=== PATIENT | male | born 1975 | race Caucasian/White ===

== ENCOUNTER 2018-05-30 12:27 | Emergency (ER) | payer BC ==
[2018-05-30] MEDS ORDERED: Sodium Chloride 0.9% 2.5 ML Syringe FLUSH PRN (12:40)
[2018-05-30] MEDS ORDERED: Aspirin 81 MG Tab.Chew PO ONE (12:40)
[2018-05-30] MEDS ORDERED: Sodium Chloride 0.9% 10 ML Syringe FLUSH PRN (12:40)
[2018-05-30] MEDS ORDERED: Sodium Chloride 0.9% 500 ML IV SCH (12:45)
[2018-05-30] MEDS: Nitroglycerin 0.4 MG Tab.SL SL PRN ×2 (12:45→12:55)
--- NOTE | 2018-05-30 12:46 | EDM.PDOC ---
ED HPI GENERAL MEDICAL PROBLEM - General Chief Complaint: Chest Pain Stated Complaint: CHEST PAIN Time Seen by Provider: 05/30/18 12:30 - History of Present Illness INITIAL COMMENTS - FREE TEXT/NARRATIVE: HISTORY AND PHYSICAL: History of present illness: The patient is a 42-year-old male who says he has a history of hypertension but has been off medication since 2016 as his blood pressure normalized, and says he 's been under a great deal of stress with his job and has been not sleeping very much only 2-3 hours a night and he is here for left-sided chest pain. The patient says he had a similar episode in May 2016 and was admitted here as an observation and everything was negative and he had a stress test but no heart catheter. He was not told that there was anything abnormal. The patient says that he does smoke tobacco 2-3 packs a day and drinks alcohol weekly but denies drug use. Is no significant family history. He says that of late he has been under a great deal of stress with his job because he has not been sleeping very much and on , 5 nights ago, he woke with vague chest pain and some sweating. He didn't think anything of it as he thought it was just related to his stress. He says he has had chest pain this morning at 2:30 AM which lasted about 45 minutes and it was left-sided pressure-like and it made him feel lightheaded. He had no shortness of breath abdominal pain or vomiting and he did not pass out. Again he was driving his car and awake when this occurred and did not come in for care. Since 7 AM he has had on again off again chest pressure on the left side without radiation and no associated symptoms and he currently rates it as a 4-5/10. Is not taking any medication for this. He says that he feels like his blood pressure is likely elevated as well area has no leg pain or swelling and no calf pain. He's been eating and drinking normally and doesn't drink an excessive amount of caffeine. The patient says that he has not had his lipid panel or cholesterol profile checked in the last 2 years Review of systems: As per history of present illness and below otherwise all systems reviewed and negative. Past medical history: As per history of present illness and as reviewed below otherwise noncontributory. Surgical history: As per history of present illness and as reviewed below otherwise noncontributory. Social history: No reported history of drug or alcohol abuse. Family history: As per history of present illness and as reviewed below otherwise noncontributory. Physical exam: General: Well-developed well-nourished man who is nontoxic and vital signs were noted by me. He is mildly overweight. HEENT: Atraumatic, normocephalic, pupils reactive, negative for conjunctival pallor or scleral icterus, mucous membranes moist, throat clear, neck supple, nontender, trachea midline. Lungs: Clear to auscultation, breath sounds equal bilaterally, chest nontender. Heart: S1S2, regular rate and rhythm no overt murmurs Abdomen: Soft, nondistended, nontender. Negative for masses or hepatosplenomegaly. Negative for costovertebral tenderness. Pelvis: Stable nontender. Genitourinary: Deferred. Rectal: Deferred. Extremities: Atraumatic, negative for cords or calf pain. Neurovascular unremarkable. No pedal edema or leg asymmetry Neuro: Awake, alert, oriented. Cranial nerves II through XII unremarkable. Cerebellum unremarkable. Motor and sensory unremarkable throughout. Exam nonfocal. Skin: Normal turgor no evidence of a overt rashes or lesions and no diaphoresis Diagnostics: EKG chest x-ray CBC CMP INR troponin Therapeutics: IV O2 monitor aspirin nitroglycerin sublingual After 2 sublingual nitros the patient is chest pain-free. 1 inch of nitro paste will be placed and I will continue to monitor his workup and plan for observation admission. 1322: Case was discussed with Dr. Zendejas our hospitalist and he accepts the patient for observation admission pending the remaining testing results which I will follow-up patient is aware of all testing results and care plan for admission as well. Impression: Episodic chest pain Definitive disposition and diagnosis as appropriate pending reevaluation and review of above. Left Chest Pain Score (Numeric/FACES): 5 - Related Data Allergies Allergy/AdvReac Type Severity Reaction Status Date / Time No Known Allergies Allergy Verified 05/30/18 12:44 Home Meds: Home Meds . [No Known Home Meds] 05/30/18 [History] Past Medical History HEENT History: Reports: None Cardiovascular History: Reports: Hypertension Respiratory History: Reports: None Gastrointestinal History: Reports: None Genitourinary History: Reports: Renal Calculus Other Genitourinary History: bladder ca Other Musculoskeletal History: hip fracture Neurological History: Reports: None Psychiatric History: Reports: None Endocrine/Metabolic History: Reports: None Hematologic History: Reports: None Immunologic History: Reports: None Oncologic (Cancer) History: Reports: Bladder Dermatologic History: Reports: None - Infectious Disease History Infectious Disease History: Reports: Chicken Pox - Past Surgical History GI Surgical History: Reports: Other (See Below) Male Surgical History: Reports: Other (See Below) Musculoskeletal Surgical History: Reports: Other (See Below) Social & Family History - Family History Family Medical History: Noncontributory Cardiac: Reports: CAD Neurological: Reports: CVA - Caffeine Use Caffeine Use: Reports: Soda, Tea ED ROS GENERAL - Review of Systems Review Of Systems: ROS reveals no pertinent complaints other than HPI. ED EXAM, GENERAL - Physical Exam Exam: See Below (See dictation) Course - Vital Signs Last Recorded V/S: Last Vital Signs Temp 36.5 C 05/30/18 12:30 Pulse 86 05/30/18 12:30 Resp 18 05/30/18 12:30 BP 150/99 H 05/30/18 12:55 Pulse Ox 97 05/30/18 12:30 - Orders/Labs/Meds Orders: Active Orders 24 hr Category Date Time Status Patient Status [ADT] Stat ADT 05/30/18 13:45 Ordered Cardiac Monitoring [RC] . DIRECTED Care 05/30/18 12:39 Active EKG Documentation Completion [RC] STAT Care 05/30/18 12:39 Active Oxygen Therapy, ED [RC] ASDIRECTED Care 05/30/18 12:39 Active Pulse Oximetry [RC] ASDIRECTED Care 05/30/18 12:39 Active Nitroglycerin [Nitrostat] Med 05/30/18 12:40 Active 0.4 mg SL Q5M PRN Sodium Chloride 0.9% [Normal Saline] 500 ml Med 05/30/18 12:45 Active IV STAT Sodium Chloride 0.9% [Saline Flush] Med 05/30/18 12:40 Active 10 ml FLUSH ASDIRECTED PRN Sodium Chloride 0.9% [Saline Flush] Med 05/30/18 12:40 Active 2.5 ml FLUSH ASDIRECTED PRN Saline Lock Insert [OM.PC] Stat Oth 05/30/18 12:39 Ordered Medication Orders Sodium Chloride (Normal Saline) 500 mls @ 999 mls/hr IV STAT SLY Last Admin: 05/30/18 12:46 Dose: 999 mls/hr Nitroglycerin (Nitrostat) 0.4 mg SL Q5M PRN PRN Reason: Chest Pain Last Admin: 05/30/18 12:55 Dose: 0.4 mg Admin: 05/30/18 12:45 Dose: 0.4 mg Sodium Chloride (Saline Flush) 10 ml FLUSH ASDIRECTED PRN PRN Reason: Keep Vein Open Last Admin: 05/30/18 12:46 Dose: 10 ml Sodium Chloride (Saline Flush) 2.5 ml FLUSH ASDIRECTED PRN PRN Reason: Keep Vein Open Last Admin: 05/30/18 12:46 Dose: 2.5 ml Labs: Laboratory Tests 05/30/18 05/30/18 05/30/18 Range/Units 12:35 12:35 12:35 WBC 7.11 (4.0-11.0) K/uL RBC 5.26 (4.50-5.90) M/uL Hgb 16.0 (13.0-17.0) g/dL Hct 46.6 (38.0-50.0) % MCV 88.6 (80.0-98.0) fL MCH 30.4 (27.0-32.0) pg MCHC 34.3 (31.0-37.0) g/dL RDW Std Deviation 46.0 (28.0-62.0) fl RDW Coeff of Linda 14 (11.0-15.0) % Plt Count 241 (150-400) K/uL MPV 9.80 (7.40-12.00) fL Neut % (Auto) 55.8 (48.0-80.0) % Lymph % (Auto) 34.6 (16.0-40.0) % [place] % (Auto) 7.5 (0.0-15.0) % Eos % (Auto) 1.3 (0.0-7.0) % Baso % (Auto) 0.8 (0.0-1.5) % Neut # (Auto) 4.0 (1.4-5.7) K/uL Lymph # (Auto) 2.5 H (0.6-2.4) K/uL [place] # (Auto) 0.5 (0.0-0.8) K/uL Eos # (Auto) 0.1 (0.0-0.7) K/uL Baso # (Auto) 0.1 (0.0-0.1) K/uL Nucleated RBC % 0.0 /100WBC Nucleated RBCs # 0 K/uL INR 0.94 Sodium 142 (136-148) mmol/L Potassium 4.3 (3.5-5.1) mmol/L Chloride 108 H (98-107) mmol/L Carbon Dioxide 26.4 (21.0-32.0) mmol/L BUN 18 (7.0-18.0) mg/dL Creatinine 1.3 (0.8-1.3) mg/dL Est Cr Clr Drug Dosing 84.61 mL/min Estimated GFR (MDRD) > 60.0 ml/min Glucose 118 H (74-106) mg/dL Calcium 9.5 (8.5-10.1) mg/dL Total Bilirubin 0.5 (0.2-1.0) mg/dL AST 21 (15-37) IU/L ALT 43 (14-63) IU/L Alkaline Phosphatase 79 (46-116) U/L Troponin I < 0.050 (0.000-0.056) ng/mL Total Protein 7.0 (6.4-8.2) g/dL Albumin 3.8 (3.4-5.0) g/dL Globulin 3.2 (2.6-4.0) g/dL Albumin/Globulin Ratio 1.2 (0.9-1.6) Meds: Medications Generic Name Dose Route Start Last Admin Trade Name Freq PRN Reason Stop Dose Admin Sodium Chloride 500 mls @ 999 mls/hr 05/30/18 12:45 05/30/18 12:46 Normal Saline IV 999 mls/hr STAT SLY Administration Nitroglycerin 0.4 mg 05/30/18 12:40 05/30/18 12:55 Nitrostat SL 0.4 mg Q5M PRN Administration Chest Pain Sodium Chloride 10 ml 05/30/18 12:40 05/30/18 12:46 Saline Flush FLUSH 10 ml ASDIRECTED PRN Administration Keep Vein Open Sodium Chloride 2.5 ml 05/30/18 12:40 05/30/18 12:46 Saline Flush FLUSH 2.5 ml ASDIRECTED PRN Administration Keep Vein Open Discontinued Medications Generic Name Dose Route Start Last Admin Trade Name Gricelda PRN Reason Stop Dose Admin Aspirin 324 mg 05/30/18 12:40 05/30/18 12:44 Aspirin PO 05/30/18 12:41 324 mg ONETIME ONE Administration Nitroglycerin 1 gm 05/30/18 13:01 05/30/18 13:17 Nitro-Bid 2% TOP 05/30/18 13:02 1 gm ONETIME ONE Administration Departure - Departure Time of Disposition: 13:25 Disposition: Refer to Observation Condition: Good Clinical Impression: Chest pain Qualifiers: Chest pain type: unspecified Qualified Code(s): R07.9 - Chest pain, unspecified - Discharge Information Forms: ED Department Discharge - My Orders Last 24 Hours: My Active Orders 05/30/18 12:39 Cardiac Monitoring [RC] . DIRECTED EKG Documentation Completion [RC] STAT Oxygen Therapy, ED [RC] ASDIRECTED Pulse Oximetry [RC] ASDIRECTED Saline Lock Insert [OM.PC] Stat 05/30/18 12:40 Nitroglycerin [Nitrostat] 0.4 mg SL Q5M PRN Sodium Chloride 0.9% [Saline Flush] 10 ml FLUSH ASDIRECTED PRN Sodium Chloride 0.9% [Saline Flush] 2.5 ml FLUSH ASDIRECTED PRN 05/30/18 12:45 Sodium Chloride 0.9% [Normal Saline] 500 ml IV STAT 05/30/18 13:45 Patient Status [ADT] Stat - Assessment/Plan Last 24 Hours: My Active Orders 05/30/18 12:39 Cardiac Monitoring [RC] . DIRECTED EKG Documentation Completion [RC] STAT Oxygen Therapy, ED [RC] ASDIRECTED Pulse Oximetry [RC] ASDIRECTED Saline Lock Insert [OM.PC] Stat 05/30/18 12:40 Nitroglycerin [Nitrostat] 0.4 mg SL Q5M PRN Sodium Chloride 0.9% [Saline Flush] 10 ml FLUSH ASDIRECTED PRN Sodium Chloride 0.9% [Saline Flush] 2.5 ml FLUSH ASDIRECTED PRN 05/30/18 12:45 Sodium Chloride 0.9% [Normal Saline] 500 ml IV STAT 05/30/18 13:45 Patient Status [ADT] Stat
[2018-05-30] MEDS ORDERED: Nitroglycerin 2% Oint 1 GM UD Packet TOP ONE (13:01)
[2018-05-30 13:25] LABS: CHLORIDE,CL 108 mmol/L (98-107); SODIUM,NA 142 mmol/L (136-148)
--- NOTE | 2018-05-30 13:32 | CR ---
EXAMINATION: Portable chest radiograph. HISTORY: Shortness of breath. FINDINGS: The trachea is midline. The cardiomediastinal silhouette is within normal limits. No pulmonary infiltrates, effusions or pneumothorax. Trace left basilar atelectasis. Osseous structures appear unremarkable. IMPRESSION: No acute cardiopulmonary process.
[2018-05-30 14:42] VITALS: BP 134/82
== END 2018-05-30 14:20 | disposition other institution (70) ==
LOC: MW.ED 12:27
DX: R07.9 Chest pain, unspecified (principal); I10 Essential (primary) hypertension
CPT/HCPCS: 36415; 71045; 80053; 84484; 85025; 85610; 93005; 96360; 99285; A9270; J7040

== ENCOUNTER 2018-06-01 21:51 | Observation (INO) | payer BC ==
[2018-06-01] MEDS ORDERED: Sodium Chloride 0.9% 2.5 ML Syringe FLUSH PRN (22:03)
[2018-06-01] MEDS ORDERED: Sodium Chloride 0.9% 10 ML Syringe FLUSH PRN (22:03)
--- NOTE | 2018-06-01 22:07 | EDM.PDOC ---
ED HPI GENERAL MEDICAL PROBLEM - General Chief Complaint: Chest Pain Stated Complaint: PT HAS CHEST PAINS Time Seen by Provider: 06/01/18 21:58 - History of Present Illness INITIAL COMMENTS - FREE TEXT/NARRATIVE: HISTORY AND PHYSICAL: History of present illness: The patient is a 42-year-old male who has a history of hypertension but was taken off of medications in 2016 and had a history of an episode of chest pain back in May 2016 for which he was admitted and the workup was negative and now presents with left-sided chest pain pressure that started at 7:30 PM, about 3 hours ago. The patient was seen here by me 2 days ago for similar chest pain and to supplement will nitros made the pain go away. Nitro paste was placed and the patient was admitted to the hospital but then when the patient was getting ready to be transferred to the floor he declined admission as he had a port meeting at work. He says that the pain did not return and he has been pain-free for the last 2 days and then this evening the pain restarted similar to what he had 2 days ago. The pain does not radiate but he did feel lightheaded but no shortness of breath nausea or vomiting. He's been eating and drinking normally. The patient says that the pain is currently a 4/10 but it was worse earlier and he took 4 baby aspirin at home prior to coming here. He has no leg pain or swelling. He is a smoker. The patient also says that when the chest pain started he took his blood pressure and it was high 180s over 110s Please review my prior note of May 30 as there is more information about family history and his presentation on that particular ER visit. Review of systems: As per history of present illness and below otherwise all systems reviewed and negative. Past medical history: As per history of present illness and as reviewed below otherwise noncontributory. Surgical history: As per history of present illness and as reviewed below otherwise noncontributory. Social history: No reported history of drug or alcohol abuse. Family history: As per history of present illness and as reviewed below otherwise noncontributory. Physical exam: Gen.: Well-developed well-nourished mildly overweight man who is nontoxic and smells heavily of cigarette smoke. Vital signs are noted by me. HEENT: Atraumatic, normocephalic, negative for conjunctival pallor or scleral icterus, mucous membranes moist, throat clear, neck supple, nontender, trachea midline. Lungs: Clear to auscultation, breath sounds equal bilaterally, chest nontender. Heart: S1S2, regular, negative for clicks, rubs, or JVD. No overt murmurs Abdomen: Soft, nondistended, nontender. Negative for masses or hepatosplenomegaly. NABS Pelvis: Stable nontender. Genitourinary: Deferred. Rectal: Deferred. Extremities: Atraumatic, negative for cords or calf pain. Neurovascular unremarkable. No pedal edema Neuro: Awake, alert, oriented. Cranial nerves II through XII unremarkable. Cerebellum unremarkable. Motor and sensory unremarkable throughout. Exam nonfocal. Diagnostics: EKG chest x-ray CBC CMP lipase INR troponin Therapeutics: IV O2 monitor, patient took 5 baby aspirin prior to arrival so I will not repeat , nitroglycerin sublingual nitroglycerin paste 2230: I was speaking with our hospitalist Dr. Zendejas about another patient and I have informed him about this patient. In light of the patient's ER visit and AMA 2 days ago for chest pain and now her return for the same he will likely need observation admission despite lab test results. Dr. Zendejas agrees and we will place him in observation admission pending those testing results. The patient is chest pain-free after 2 sublingual nitroglycerin. This is similar to 2 days ago when he was present. Nitro paste will be applied. All testing results were discussed with the patient which are again negative and we' ll plan for observation admission. Impression: Chest pain rule out ACS Definitive disposition and diagnosis as appropriate pending reevaluation and review of above. chest Pain Score (Numeric/FACES): 3 - Related Data Allergies Allergy/AdvReac Type Severity Reaction Status Date / Time No Known Allergies Allergy Verified 06/01/18 21:58 Home Meds: Home Meds . [No Known Home Meds] 05/30/18 [History] Past Medical History HEENT History: Reports: None Cardiovascular History: Reports: Hypertension Respiratory History: Reports: None Gastrointestinal History: Reports: None Genitourinary History: Reports: Renal Calculus Other Genitourinary History: bladder ca Other Musculoskeletal History: hip fracture Neurological History: Reports: None Psychiatric History: Reports: None Endocrine/Metabolic History: Reports: None Hematologic History: Reports: None Immunologic History: Reports: None Oncologic (Cancer) History: Reports: Bladder Dermatologic History: Reports: None - Infectious Disease History Infectious Disease History: Reports: Chicken Pox - Past Surgical History GI Surgical History: Reports: Other (See Below) Male Surgical History: Reports: Other (See Below) Musculoskeletal Surgical History: Reports: Other (See Below) Social & Family History - Family History Family Medical History: Noncontributory Cardiac: Reports: CAD Neurological: Reports: CVA - Caffeine Use Caffeine Use: Reports: Soda, Tea ED ROS GENERAL - Review of Systems Review Of Systems: ROS reveals no pertinent complaints other than HPI. ED EXAM, GENERAL - Physical Exam Exam: See Below (See dictation) Course - Vital Signs Last Recorded V/S: Last Vital Signs Temp 36.6 C 06/01/18 21:55 Pulse 73 06/01/18 22:32 Resp 18 06/01/18 22:32 BP 129/80 06/01/18 22:32 Pulse Ox 96 06/01/18 22:32 - Orders/Labs/Meds Orders: Active Orders 24 hr Category Date Time Status Patient Status [ADT] Stat ADT 06/01/18 22:51 Ordered Cardiac Monitoring [RC] . DIRECTED Care 06/01/18 22:03 Active EKG Documentation Completion [RC] STAT Care 06/01/18 22:03 Active Oxygen Therapy, ED [RC] ASDIRECTED Care 06/01/18 22:03 Active Pulse Oximetry [RC] ASDIRECTED Care 06/01/18 22:03 Active Nitroglycerin [Nitrostat] Med 06/01/18 22:03 Active 0.4 mg SL Q5M PRN Sodium Chloride 0.9% [Saline Flush] Med 06/01/18 22:03 Active 10 ml FLUSH ASDIRECTED PRN Sodium Chloride 0.9% [Saline Flush] Med 06/01/18 22:03 Active 2.5 ml FLUSH ASDIRECTED PRN Saline Lock Insert [OM.PC] Stat Oth 06/01/18 22:03 Ordered Medication Orders Nitroglycerin (Nitrostat) 0.4 mg SL Q5M PRN PRN Reason: Chest Pain Last Admin: 06/01/18 22:14 Dose: 0.4 mg Admin: 06/01/18 22:08 Dose: 0.4 mg Sodium Chloride (Saline Flush) 10 ml FLUSH ASDIRECTED PRN PRN Reason: Keep Vein Open Sodium Chloride (Saline Flush) 2.5 ml FLUSH ASDIRECTED PRN PRN Reason: Keep Vein Open Labs: Laboratory Tests 06/01/18 06/01/18 06/01/18 Range/Units 22:13 22:13 22:13 WBC 9.13 (4.0-11.0) K/uL RBC 5.29 (4.50-5.90) M/uL Hgb 16.1 (13.0-17.0) g/dL Hct 46.4 (38.0-50.0) % MCV 87.7 (80.0-98.0) fL MCH 30.4 (27.0-32.0) pg MCHC 34.7 (31.0-37.0) g/dL RDW Std Deviation 44.9 (28.0-62.0) fl RDW Coeff of Linda 14 (11.0-15.0) % Plt Count 235 (150-400) K/uL MPV 9.80 (7.40-12.00) fL Neut % (Auto) 50.1 (48.0-80.0) % Lymph % (Auto) 40.0 (16.0-40.0) % [place] % (Auto) 7.4 (0.0-15.0) % Eos % (Auto) 1.8 (0.0-7.0) % Baso % (Auto) 0.7 (0.0-1.5) % Neut # (Auto) 4.6 (1.4-5.7) K/uL Lymph # (Auto) 3.7 H (0.6-2.4) K/uL [place] # (Auto) 0.7 (0.0-0.8) K/uL Eos # (Auto) 0.2 (0.0-0.7) K/uL Baso # (Auto) 0.1 (0.0-0.1) K/uL Nucleated RBC % 0.0 /100WBC Nucleated RBCs # 0 K/uL INR 0.98 Sodium 142 (136-148) mmol/L Potassium 3.9 (3.5-5.1) mmol/L Chloride 104 (98-107) mmol/L Carbon Dioxide 27.3 (21.0-32.0) mmol/L BUN 16 (7.0-18.0) mg/dL Creatinine 1.2 (0.8-1.3) mg/dL Est Cr Clr Drug Dosing 97.45 mL/min Estimated GFR (MDRD) > 60.0 ml/min Glucose 103 (74-106) mg/dL Calcium 9.8 (8.5-10.1) mg/dL Total Bilirubin 0.4 (0.2-1.0) mg/dL AST 15 (15-37) IU/L ALT 43 (14-63) IU/L Alkaline Phosphatase 74 (46-116) U/L Troponin I < 0.050 (0.000-0.056) ng/mL Total Protein 7.4 (6.4-8.2) g/dL Albumin 4.3 (3.4-5.0) g/dL Globulin 3.1 (2.6-4.0) g/dL Albumin/Globulin Ratio 1.4 (0.9-1.6) Lipase 173 (73-393) U/L Meds: Medications Generic Name Dose Route Start Last Admin Trade Name Freq PRN Reason Stop Dose Admin Nitroglycerin 0.4 mg 06/01/18 22:03 06/01/18 22:14 Nitrostat SL 0.4 mg Q5M PRN Administration Chest Pain Sodium Chloride 10 ml 06/01/18 22:03 Saline Flush FLUSH ASDIRECTED PRN Keep Vein Open Sodium Chloride 2.5 ml 06/01/18 22:03 Saline Flush FLUSH ASDIRECTED PRN Keep Vein Open Discontinued Medications Generic Name Dose Route Start Last Admin Trade Name Freq PRN Reason Stop Dose Admin Nitroglycerin 1 gm 06/01/18 22:50 Nitro-Bid 2% TOP 06/01/18 22:51 ONETIME ONE Departure - Departure Time of Disposition: 22:37 Disposition: Refer to Observation Condition: Good Clinical Impression: Chest pain Qualifiers: Chest pain type: unspecified Qualified Code(s): R07.9 - Chest pain, unspecified - Discharge Information Referrals: PCP,None [Primary Care Provider] - Forms: ED Department Discharge - My Orders Last 24 Hours: My Active Orders 06/01/18 22:03 Cardiac Monitoring [RC] . DIRECTED EKG Documentation Completion [RC] STAT Oxygen Therapy, ED [RC] ASDIRECTED Pulse Oximetry [RC] ASDIRECTED Nitroglycerin [Nitrostat] 0.4 mg SL Q5M PRN Sodium Chloride 0.9% [Saline Flush] 10 ml FLUSH ASDIRECTED PRN Sodium Chloride 0.9% [Saline Flush] 2.5 ml FLUSH ASDIRECTED PRN Saline Lock Insert [OM.PC] Stat 06/01/18 22:51 Patient Status [ADT] Stat - Assessment/Plan Last 24 Hours: My Active Orders 06/01/18 22:03 Cardiac Monitoring [RC] . DIRECTED EKG Documentation Completion [RC] STAT Oxygen Therapy, ED [RC] ASDIRECTED Pulse Oximetry [RC] ASDIRECTED Nitroglycerin [Nitrostat] 0.4 mg SL Q5M PRN Sodium Chloride 0.9% [Saline Flush] 10 ml FLUSH ASDIRECTED PRN Sodium Chloride 0.9% [Saline Flush] 2.5 ml FLUSH ASDIRECTED PRN Saline Lock Insert [OM.PC] Stat 06/01/18 22:51 Patient Status [ADT] Stat
[2018-06-01] MEDS: Nitroglycerin 0.4 MG Tab.SL SL PRN ×2 (22:08→22:14)
[2018-06-01 22:44] LABS: CHLORIDE,CL 104 mmol/L (98-107); SODIUM,NA 142 mmol/L (136-148)
--- NOTE | 2018-06-01 22:46 | CR ---
INDICATION: Chest pain TECHNIQUE: Chest radiograph 1 view COMPARISON: 05/30/18 FINDINGS: Moderate degradation of image quality noted due to body habitus. Mediastinum: The mediastinum is normal in appearance. The heart silhouette is normal in size and morphology. Lung: Both lungs are unremarkable in appearance. No sign of pleural effusion seen. No pneumothorax is identified. Musculoskeletal: Unremarkable for age. IMPRESSION: 1. No acute cardiopulmonary disease is seen. Dictated by: Doroteo Rizzo MD @ 06/01/2018 22:45:52 (Electronically Signed)
[2018-06-01] MEDS ORDERED: Nitroglycerin 2% Oint 1 GM UD Packet TOP ONE (22:50)
[2018-06-02] MEDS ORDERED: Ondansetron 4 MG Tab.DIS PO PRN (00:07)
[2018-06-02] MEDS ORDERED: Temazepam 15 MG Cap PO PRN (00:07)
[2018-06-02] MEDS ORDERED: Docusate Sodium 100 MG Cap PO PRN (00:07)
[2018-06-02] MEDS ORDERED: Acetaminophen 325 MG Tab PO PRN (00:07)
[2018-06-02] MEDS ORDERED: oxyCODONE 5 MG Tab PO PRN (00:07)
[2018-06-02] MEDS ORDERED: Sodium Chloride 0.9% 2.5 ML Syringe FLUSH PRN (00:07)
[2018-06-02] MEDS ORDERED: Sodium Chloride 0.9% 10 ML Syringe FLUSH PRN (00:07)
--- NOTE | 2018-06-02 00:12 | PCM.HP ---
H&P History of Present Illness - General Date of Service: 06/02/18 Admit Problem/Dx: Admission Diagnosis/Problem Admission Diagnosis/Problem Chest pain Source of Information: Patient History Limitations: Reports: No Limitations - History of Present Illness Initial Comments - Free Text/Narative: The patient is an otherwise healthy 42-year-old gentleman who has a history of hypertension but was taken off his medications in 2017 secondary to weight loss and healthy lifestyle. The patient was seen in the emergency department for similar chest pain and nitroglycerin had resolved the pain. The patient at that time had declined admission. The patient reported that today the pain came back. Located in the center of his chest towards the left side and has been radiating into his arm. The patient is a heavy smoker of 2 packs per day. Patient also has been under a significant deal of stress with with his family and his work. Patient says that he has had some dizziness and some diaphoresis. The patient became concerned when the chest pain returned. He also says that he has a history of acid reflux. Denies water brash. Onset of Symptoms: Reports: Gradual Duration of Symptoms: Reports: Day(s):, Getting Worse Location: Reports: Chest Quality: Reports: Pressure, Stabbing, Throbbing Severity: Moderate Improves with: Reports: Medication, Rest Worsens with: Reports: Movement Associated Symptoms: Reports: Diaphoresis chest Pain Score (Numeric/FACES): 3 - Related Data Allergies/Adverse Reactions: Allergies Allergy/AdvReac Type Severity Reaction Status Date / Time No Known Allergies Allergy Verified 06/02/18 00:18 Home Medications: Home Meds . [No Known Home Meds] 05/30/18 [History] Past Medical History HEENT History: Reports: None Other HEENT History: wears glasses Cardiovascular History: Reports: Hypertension Other Cardiovascular History: states PCP [id number] him off HTN medication couple of years ago "it's under control" Respiratory History: Reports: None Gastrointestinal History: Reports: None Genitourinary History: Reports: Renal Calculus Other Genitourinary History: bladder ca Other Musculoskeletal History: hip fracture Neurological History: Reports: None Psychiatric History: Reports: None Endocrine/Metabolic History: Reports: None Hematologic History: Reports: None Immunologic History: Reports: None Oncologic (Cancer) History: Reports: Bladder Dermatologic History: Reports: None - Infectious Disease History Infectious Disease History: Reports: Chicken Pox - Past Surgical History GI Surgical History: Reports: Other (See Below) Male Surgical History: Reports: Other (See Below) Musculoskeletal Surgical History: Reports: Other (See Below) Social & Family History - Family History Family Medical History: Noncontributory Cardiac: Reports: CAD Neurological: Reports: CVA - Tobacco Use Smoking Status *Q: Current Every Day Smoker Years of Tobacco use: 25 Packs/Tins Daily: 2 - Caffeine Use Caffeine Use: Reports: Soda, Tea - Recreational Drug Use Recreational Drug Use: No - Living Situation & Occupation Living situation: Reports: , with Significant Other Occupation: Employed H&P Review of Systems - Review of Systems: Review Of Systems: See Below General: Reports: Weakness, Night Sweats HEENT: Reports: No Symptoms Pulmonary: Reports: No Symptoms Cardiovascular: Reports: Chest Pain, Lightheadedness, Blood Pressure Problem Gastrointestinal: Reports: No Symptoms Genitourinary: Reports: No Symptoms Musculoskeletal: Reports: No Symptoms Skin: Reports: No Symptoms Psychiatric: Reports: No Symptoms Neurological: Reports: No Symptoms Hematologic/Lymphatic: Reports: No Symptoms Immunologic: Reports: No Symptoms Exam - Exam Exam: See Below - Vital Signs Vital Signs: Last Vital Signs Temp 36.6 C 06/01/18 21:55 Pulse 78 06/01/18 23:53 Resp 17 06/01/18 23:53 BP 129/80 06/01/18 23:53 Pulse Ox 96 06/01/18 23:53 Weight: 124 kg - Exam Quality Assessment: Supplemental Oxygen General: Alert, Oriented, Cooperative, Mild Distress HEENT: Conjunctiva Clear, EACs Clear, EOMI, Mucosa Moist & [place], Nares Patent, Pupils Equal, Pupils Reactive Neck: Supple, Trachea Midline Lungs: Clear to Auscultation, Normal Respiratory Effort, Other (Non tender chest wall) Cardiovascular: Regular Rate, Regular Rhythm GI/Abdominal Exam: Normal Bowel Sounds, Soft, No Distention (Male) Exam: Deferred Rectal (Males) Exam: Deferred Back Exam: Normal Inspection, Full Range of Motion Extremities: Normal Inspection, Normal Range of Motion, No Pedal Edema Skin: Warm, Dry, Intact Neurological: Cranial Nerves Intact Neuro Extensive - Mental Status: Alert, Oriented x3 Psychiatric: Alert, Normal Affect, Normal Mood - Patient Data Lab Results Last 24 hrs: Laboratory Results - last 24 hr 06/01/18 06/01/18 06/01/18 Range/Units 22:13 22:13 22:13 WBC 9.13 (4.0-11.0) K/uL RBC 5.29 (4.50-5.90) M/uL Hgb 16.1 (13.0-17.0) g/dL Hct 46.4 (38.0-50.0) % MCV 87.7 (80.0-98.0) fL MCH 30.4 (27.0-32.0) pg MCHC 34.7 (31.0-37.0) g/dL RDW Std Deviation 44.9 (28.0-62.0) fl RDW Coeff of Linda 14 (11.0-15.0) % Plt Count 235 (150-400) K/uL MPV 9.80 (7.40-12.00) fL Neut % (Auto) 50.1 (48.0-80.0) % Lymph % (Auto) 40.0 (16.0-40.0) % [place] % (Auto) 7.4 (0.0-15.0) % Eos % (Auto) 1.8 (0.0-7.0) % Baso % (Auto) 0.7 (0.0-1.5) % Neut # (Auto) 4.6 (1.4-5.7) K/uL Lymph # (Auto) 3.7 H (0.6-2.4) K/uL [place] # (Auto) 0.7 (0.0-0.8) K/uL Eos # (Auto) 0.2 (0.0-0.7) K/uL Baso # (Auto) 0.1 (0.0-0.1) K/uL Nucleated RBC % 0.0 /100WBC Nucleated RBCs # 0 K/uL INR 0.98 Sodium 142 (136-148) mmol/L Potassium 3.9 (3.5-5.1) mmol/L Chloride 104 (98-107) mmol/L Carbon Dioxide 27.3 (21.0-32.0) mmol/L BUN 16 (7.0-18.0) mg/dL Creatinine 1.2 (0.8-1.3) mg/dL Est Cr Clr Drug Dosing 97.45 mL/min Estimated GFR (MDRD) > 60.0 ml/min Glucose 103 (74-106) mg/dL Calcium 9.8 (8.5-10.1) mg/dL Total Bilirubin 0.4 (0.2-1.0) mg/dL AST 15 (15-37) IU/L ALT 43 (14-63) IU/L Alkaline Phosphatase 74 (46-116) U/L Troponin I < 0.050 (0.000-0.056) ng/mL Total Protein 7.4 (6.4-8.2) g/dL Albumin 4.3 (3.4-5.0) g/dL Globulin 3.1 (2.6-4.0) g/dL Albumin/Globulin Ratio 1.4 (0.9-1.6) Lipase 173 (73-393) U/L Result Diagrams: 06/01/18 22:13 06/01/18 22:13 - Problem List (1) Chest pain SNOMED Code(s): 99906754 ICD Code: R07.9 - CHEST PAIN, UNSPECIFIED Status: Acute Priority: High Current Visit: Yes Qualifiers: Chest pain type: unspecified Qualified Code(s): R07.9 - Chest pain, unspecified (2) HTN (hypertension) SNOMED Code(s): 13397279 ICD Code: I10 - ESSENTIAL (PRIMARY) HYPERTENSION Status: Acute Priority: High Current Visit: Yes Qualifiers: Hypertension type: essential hypertension Qualified Code(s): I10 - Essential (primary) hypertension (3) Tobacco abuse SNOMED Code(s): 425466663 ICD Code: Z72.0 - TOBACCO USE Status: Acute Priority: High Current Visit: Yes Problem List Initiated/Reviewed/Updated: Yes Orders Last 24hrs: Active Orders 24 hr Category Date Time Status Patient Status [ADT] Stat ADT 06/01/18 22:51 Active Cardiac Monitoring [RC] . DIRECTED Care 06/01/18 22:03 Active Cardiac Monitoring [RC] CONTINUOUS Care 06/02/18 00:07 Ordered EKG Documentation Completion [RC] AM Care 06/02/18 08:00 Ordered EKG Documentation Completion [RC] STAT Care 06/01/18 22:03 Active Oxygen Therapy [RC] PRN Care 06/02/18 00:07 Ordered Oxygen Therapy, ED [RC] ASDIRECTED Care 06/01/18 22:03 Active Pulse Oximetry [RC] ASDIRECTED Care 06/01/18 22:03 Active Up ad [place] [RC] ASDIRECTED Care 06/02/18 00:07 Ordered VTE/DVT Education [RC] PER UNIT ROUTINE Care 06/02/18 00:07 Ordered Vital Signs [RC] Q4H Care 06/02/18 00:07 Ordered Heart Healthy Diet [DIET] Diet 06/02/18 Breakfast Ordered CBC WITH AUTO DIFF [HEME] AM Lab 06/02/18 05:11 Ordered COMPREHENSIVE METABOLIC PN,CMP [CHEM] AM Lab 06/02/18 05:11 Ordered H PYLORI STOOL ANTIGEN [MREF] Routine Lab 06/02/18 00:07 Ordered TROPONIN I [CHEM] Q6H Lab 06/02/18 00:07 Ordered TROPONIN I [CHEM] Q6H Lab 06/02/18 06:07 Ordered Acetaminophen [Tylenol] Med 06/02/18 00:07 Ordered 650 mg PO Q4H PRN Docusate Sodium [Colace] Med 06/02/18 00:07 Ordered 100 mg PO BID PRN Enoxaparin [Lovenox] Med 06/02/18 00:15 Ordered 40 mg SUBCUT Q24H Nicotine [Habitrol] Med 06/02/18 00:15 Ordered 14 mg TRDERM DAILY Nitroglycerin [Nitrostat] Med 06/01/18 22:03 Stop Req 0.4 mg SL Q5M PRN Omeprazole Med 06/02/18 07:30 Ordered 20 mg PO BIDAC Ondansetron [Zofran ODT] Med 06/02/18 00:07 Ordered 4 mg PO Q4H PRN Sodium Chloride 0.9% [Saline Flush] Med 06/01/18 22:03 Active 10 ml FLUSH ASDIRECTED PRN Sodium Chloride 0.9% [Saline Flush] Med 06/02/18 00:07 Ordered 10 ml FLUSH ASDIRECTED PRN Sodium Chloride 0.9% [Saline Flush] Med 06/01/18 22:03 Active 2.5 ml FLUSH ASDIRECTED PRN Sodium Chloride 0.9% [Saline Flush] Med 06/02/18 00:07 Ordered 2.5 ml FLUSH ASDIRECTED PRN Temazepam [Restoril] Med 06/02/18 00:07 Ordered 15 mg PO BEDTIME PRN oxyCODONE Med 06/02/18 00:07 Ordered 5 mg PO Q4H PRN Saline Lock Insert [OM.PC] Routine Oth 06/02/18 00:07 Ordered Saline Lock Insert [OM.PC] Stat Oth 06/01/18 22:03 Ordered Resuscitation Status Routine Resus Stat 06/02/18 00:07 Ordered Medication Orders Sodium Chloride (Saline Flush) 10 ml FLUSH ASDIRECTED PRN PRN Reason: Keep Vein Open Sodium Chloride (Saline Flush) 2.5 ml FLUSH ASDIRECTED PRN PRN Reason: Keep Vein Open Assessment/Plan Comment:: The patient is a 42-year-old gentleman who presented to the emergency department with a complaint of squeezing type chest pain. He'll be admitted to observation and kept on telemetry. I've ordered repeat troponins. The patient will also have DVT prophylaxis with the use of Lovenox. Patient has been kept on a heart healthy diet. The patient has been strongly counseled with regards to smoking cessation. He'll be afforded a nicotine patch if desired. I've explained to the patient that if his troponins come back abnormal he will likely need to be transferred to tertiary care center. Patient does have a history of acid reflux and I've ordered omeprazole 20 mg by mouth twice a day. The patient has a significant history of reflux and esophagitis and I've also ordered a stool antigen test for H. pylori. EKG has been ordered for the morning.
[2018-06-02] MEDS ORDERED: Enoxaparin 40 MG/0.4 ML Syringe SUBCUT SCH (00:15)
[2018-06-02] MEDS: Nicotine 14 MG/24 Hr Patch TRDERM SCH ×2 (00:51→10:25)
[2018-06-02] MEDS ORDERED: Omeprazole 20 MG Cap.CR PO SCH (07:30)
--- NOTE | 2018-06-02 08:32 | PCM.DCSUM1 ---
Discharge Summary - Hospital Course Free Text/Narrative:: Admitted for chest pain, R/O ACS Diagnosis: Stroke: No - Discharge Data Discharge Date: 06/02/18 Discharge Disposition: Home, Self-Care 01 Condition: Good - Discharge Diagnosis/Problem(s) (1) Chest pain SNOMED Code(s): 49329910 ICD Code: R07.9 - CHEST PAIN, UNSPECIFIED Status: Resolved Priority: High Current Visit: Yes Qualifiers: Chest pain type: unspecified Qualified Code(s): R07.9 - Chest pain, unspecified (2) HTN (hypertension) SNOMED Code(s): 23932712 ICD Code: I10 - ESSENTIAL (PRIMARY) HYPERTENSION Status: Chronic Priority : High Current Visit: Yes Qualifiers: Hypertension type: essential hypertension Qualified Code(s): I10 - Essential (primary) hypertension (3) Tobacco abuse SNOMED Code(s): 974217254 ICD Code: Z72.0 - TOBACCO USE Status: Chronic Priority: High Current Visit: Yes (4) Acid reflux SNOMED Code(s): 644535963 ICD Code: K21.9 - GASTRO-ESOPHAGEAL REFLUX DISEASE WITHOUT ESOPHAGITIS Status: Chronic Priority: High Current Visit: Yes Qualifiers: Esophagitis presence: without esophagitis Qualified Code(s): K21.9 - Gastro -esophageal reflux disease without esophagitis - Patient Summary/Data Hospital Course: The patient is a 42-year-old gentleman who has a history of hypertension and has been noting to have increasing blood pressure. He has been under some stress. The patient was admitted yesterday secondary to chest pain. Throughout the short course of hospitalization the patient has remained comfortable and without evidence of coronary artery disease. He had 3 troponins taken which were essentially undetectable. The patient is also a heavy smoker and he has been strongly counseled with regards to smoking cessation. I've explained to the patient that he can be having chest pain as a result of GERD or reflux disease with regards to acid in his esophagus. The patient will be sent home on omeprazole 20 mg by mouth daily, for his hypertension lisinopril 10 mg by mouth daily. He also was given a prescription for nicotine patches to help curtail his smoking. The patient at time of discharge had a blood pressure 140/80 mmHg. His CBC was normal. By day of discharge the patient had been tolerating diet. He is been recommended to continue with heart healthy diet as tolerated. He is also to have activity as tolerated. The patient has been admitted to follow-up with her primary care physician. The patient is currently hemodynamically stable and he'll be discharged from acute hospitalization with the recommendations listed above. - Patient Instructions Diet: Heart Healthy Diet Activity: As Tolerated - Discharge Plan *PRESCRIPTION DRUG MONITORING PROGRAM REVIEWED*: No *COPY OF PRESCRIPTION DRUG MONITORING REPORT IN PATIENT PETROS: No Prescriptions/Med Rec: Lisinopril [Prinivil] 10 mg PO DAILY #30 tab Nicotine [Habitrol] 14 mg TRDERM DAILY #20 patch Omeprazole 20 mg PO DAILY #30 tab. Home Medications: Home Meds Lisinopril [Prinivil] 10 mg PO DAILY #30 tab 06/02/18 [Rx] Nicotine [Habitrol] 14 mg TRDERM DAILY #20 patch 06/02/18 [Rx] Omeprazole 20 mg PO DAILY #30 tab. 06/02/18 [Rx] Oxygen Therapy Mode: Room Air Patient Handouts: Coping with Quitting Smoking, Nonspecific Chest Pain Forms: ED Department Discharge Referrals: Eric Enamorado MD [Resident] - PCP,None [Primary Care Provider] - - Discharge Summary/Plan Comment DC Time >30 min.: Yes - General Info Date of Service: 06/02/18 Admission Dx/Problem (Free Text: Admission Diagnosis/Problem Admission Diagnosis/Problem Chest pain, non cardiac Functional Status: Reports: Pain Controlled, Tolerating Diet - Review of Systems General: Reports: No Symptoms HEENT: Reports: No Symptoms Pulmonary: Reports: No Symptoms Cardiovascular: Reports: No Symptoms Gastrointestinal: Reports: No Symptoms Genitourinary: Reports: No Symptoms Musculoskeletal: Reports: No Symptoms Skin: Reports: No Symptoms Neurological: Reports: No Symptoms Psychiatric: Reports: No Symptoms - Patient Data Vitals - Most Recent: Last Vital Signs Temp 36.2 C 06/02/18 04:07 Pulse 112 H 06/02/18 04:07 Resp 24 H 06/02/18 04:07 BP 140/80 06/02/18 04:07 Pulse Ox 99 06/02/18 04:07 Weight - Most Recent: 124 kg I&O - Last 24 hours: Intake & Output 06/01/18 06/02/18 06/02/18 22:59 06:59 14:59 Intake Total 1000 Balance 1000 Lab Results - Last 24 hrs: Laboratory Results - last 24 hr 06/01/18 06/01/18 06/01/18 Range/Units 22:13 22:13 22:13 WBC 9.13 (4.0-11.0) K/uL RBC 5.29 (4.50-5.90) M/uL Hgb 16.1 (13.0-17.0) g/dL Hct 46.4 (38.0-50.0) % MCV 87.7 (80.0-98.0) fL MCH 30.4 (27.0-32.0) pg MCHC 34.7 (31.0-37.0) g/dL RDW Std Deviation 44.9 (28.0-62.0) fl RDW Coeff of Linda 14 (11.0-15.0) % Plt Count 235 (150-400) K/uL MPV 9.80 (7.40-12.00) fL Neut % (Auto) 50.1 (48.0-80.0) % Lymph % (Auto) 40.0 (16.0-40.0) % [place] % (Auto) 7.4 (0.0-15.0) % Eos % (Auto) 1.8 (0.0-7.0) % Baso % (Auto) 0.7 (0.0-1.5) % Neut # (Auto) 4.6 (1.4-5.7) K/uL Lymph # (Auto) 3.7 H (0.6-2.4) K/uL [place] # (Auto) 0.7 (0.0-0.8) K/uL Eos # (Auto) 0.2 (0.0-0.7) K/uL Baso # (Auto) 0.1 (0.0-0.1) K/uL Nucleated RBC % 0.0 /100WBC Nucleated RBCs # 0 K/uL INR 0.98 Sodium 142 (136-148) mmol/L Potassium 3.9 (3.5-5.1) mmol/L Chloride 104 (98-107) mmol/L Carbon Dioxide 27.3 (21.0-32.0) mmol/L BUN 16 (7.0-18.0) mg/dL Creatinine 1.2 (0.8-1.3) mg/dL Est Cr Clr Drug Dosing 97.45 mL/min Estimated GFR (MDRD) > 60.0 ml/min Glucose 103 (74-106) mg/dL Calcium 9.8 (8.5-10.1) mg/dL Total Bilirubin 0.4 (0.2-1.0) mg/dL AST 15 (15-37) IU/L ALT 43 (14-63) IU/L Alkaline Phosphatase 74 (46-116) U/L Troponin I < 0.050 (0.000-0.056) ng/mL Total Protein 7.4 (6.4-8.2) g/dL Albumin 4.3 (3.4-5.0) g/dL Globulin 3.1 (2.6-4.0) g/dL Albumin/Globulin Ratio 1.4 (0.9-1.6) Lipase 173 (73-393) U/L 06/02/18 06/02/18 06/02/18 Range/Units 00:31 06:15 06:15 WBC 10.82 (4.0-11.0) K/uL RBC 5.11 (4.50-5.90) M/uL Hgb 15.3 (13.0-17.0) g/dL Hct 45.3 (38.0-50.0) % MCV 88.6 (80.0-98.0) fL MCH 29.9 (27.0-32.0) pg MCHC 33.8 (31.0-37.0) g/dL RDW Std Deviation 45.9 (28.0-62.0) fl RDW Coeff of Linda 14 (11.0-15.0) % Plt Count 225 (150-400) K/uL MPV 9.60 (7.40-12.00) fL Neut % (Auto) 75.8 (48.0-80.0) % Lymph % (Auto) 16.8 (16.0-40.0) % [place] % (Auto) 6.2 (0.0-15.0) % Eos % (Auto) 0.9 (0.0-7.0) % Baso % (Auto) 0.3 (0.0-1.5) % Neut # (Auto) 8.2 H (1.4-5.7) K/uL Lymph # (Auto) 1.8 (0.6-2.4) K/uL [place] # (Auto) 0.7 (0.0-0.8) K/uL Eos # (Auto) 0.1 (0.0-0.7) K/uL Baso # (Auto) 0.0 (0.0-0.1) K/uL Nucleated RBC % 0.2 /100WBC Nucleated RBCs # 0 K/uL INR Sodium 144 (136-148) mmol/L Potassium 4.7 (3.5-5.1) mmol/L Chloride 108 H (98-107) mmol/L Carbon Dioxide 29.0 (21.0-32.0) mmol/L BUN 20 H (7.0-18.0) mg/dL Creatinine 1.5 H (0.8-1.3) mg/dL Est Cr Clr Drug Dosing 77.96 mL/min Estimated GFR (MDRD) 51.1 ml/min Glucose 122 H (74-106) mg/dL Calcium 9.3 (8.5-10.1) mg/dL Total Bilirubin 0.3 (0.2-1.0) mg/dL AST 16 (15-37) IU/L ALT 40 (14-63) IU/L Alkaline Phosphatase 68 (46-116) U/L Troponin I < 0.050 (0.000-0.056) ng/mL Total Protein 6.5 (6.4-8.2) g/dL Albumin 3.9 (3.4-5.0) g/dL Globulin 2.6 (2.6-4.0) g/dL Albumin/Globulin Ratio 1.5 (0.9-1.6) Lipase (73-393) U/L 06/02/18 Range/Units 06:15 WBC (4.0-11.0) K/uL RBC (4.50-5.90) M/uL Hgb (13.0-17.0) g/dL Hct (38.0-50.0) % MCV (80.0-98.0) fL MCH (27.0-32.0) pg MCHC (31.0-37.0) g/dL RDW Std Deviation (28.0-62.0) fl RDW Coeff of Linda (11.0-15.0) % Plt Count (150-400) K/uL MPV (7.40-12.00) fL Neut % (Auto) (48.0-80.0) % Lymph % (Auto) (16.0-40.0) % [place] % (Auto) (0.0-15.0) % Eos % (Auto) (0.0-7.0) % Baso % (Auto) (0.0-1.5) % Neut # (Auto) (1.4-5.7) K/uL Lymph # (Auto) (0.6-2.4) K/uL [place] # (Auto) (0.0-0.8) K/uL Eos # (Auto) (0.0-0.7) K/uL Baso # (Auto) (0.0-0.1) K/uL Nucleated RBC % /100WBC Nucleated RBCs # K/uL INR Sodium (136-148) mmol/L Potassium (3.5-5.1) mmol/L Chloride (98-107) mmol/L Carbon Dioxide (21.0-32.0) mmol/L BUN (7.0-18.0) mg/dL Creatinine (0.8-1.3) mg/dL Est Cr Clr Drug Dosing mL/min Estimated GFR (MDRD) ml/min Glucose (74-106) mg/dL Calcium (8.5-10.1) mg/dL Total Bilirubin (0.2-1.0) mg/dL AST (15-37) IU/L ALT (14-63) IU/L Alkaline Phosphatase (46-116) U/L Troponin I < 0.050 (0.000-0.056) ng/mL Total Protein (6.4-8.2) g/dL Albumin (3.4-5.0) g/dL Globulin (2.6-4.0) g/dL Albumin/Globulin Ratio (0.9-1.6) Lipase (73-393) U/L Med Orders - Current: Current Medications Acetaminophen (Tylenol) 650 mg PO Q4H PRN PRN Reason: Pain (Mild 1-3)/fever Docusate Sodium (Colace) 100 mg PO BID PRN PRN Reason: Constipation Enoxaparin Sodium (Lovenox) [address] [facility] Last Admin: 06/02/18 00:51 Dose: Not Given Nicotine (Habitrol) [address] [facility] Last Admin: 06/02/18 00:51 Dose: Not Given Omeprazole (Omeprazole) [address] [facility] Last Admin: 06/02/18 06:33 Dose: Not Given Ondansetron HCl (Zofran Odt) 4 mg PO Q4H PRN PRN Reason: nausea, able to take PO Oxycodone HCl (Oxycodone) 5 mg PO Q4H PRN PRN Reason: Pain (moderate 4-6) Last Admin: 06/02/18 03:19 Dose: 5 mg Sodium Chloride (Saline Flush) 10 ml FLUSH ASDIRECTED PRN PRN Reason: Keep Vein Open Sodium Chloride (Saline Flush) 2.5 ml FLUSH ASDIRECTED PRN PRN Reason: Keep Vein Open Sodium Chloride (Saline Flush) 10 ml FLUSH ASDIRECTED PRN PRN Reason: Keep Vein Open Sodium Chloride (Saline Flush) 2.5 ml FLUSH ASDIRECTED PRN PRN Reason: Keep Vein Open Temazepam (Restoril) 15 mg PO BEDTIME PRN PRN Reason: Sleep Discontinued Medications Nitroglycerin (Nitrostat) 0.4 mg SL Q5M PRN PRN Reason: Chest Pain Last Admin: 06/01/18 22:14 Dose: 0.4 mg Nitroglycerin (Nitro-Bid 2%) 1 gm TOP ONETIME ONE Stop: 06/01/18 22:51 Last Admin: 06/01/18 22:56 Dose: 1 gm - Exam Quality Assessment: Denies: Supplemental Oxygen General: Reports: Alert, Oriented, Cooperative, No Acute Distress HEENT: Reports: Pupils Equal, Pupils Reactive, EOMI Neck: Reports: Supple, Trachea Midline Lungs: Reports: Clear to Auscultation, Normal Respiratory Effort Cardiovascular: Reports: Regular Rate, Regular Rhythm GI/Abdominal Exam: Normal Bowel Sounds, Soft, Non-Tender, No Distention (Male) Exam: Deferred Rectal (Males) Exam: Deferred Back Exam: Reports: Normal Inspection, Full Range of Motion Extremities: Normal Inspection, No Pedal Edema Skin: Reports: Warm, Dry, Intact Neurological: Reports: No New Focal Deficit Psy/Mental Status: Reports: Alert, Normal Affect, Normal Mood EKG INTERPRETATION EKG Date: 06/02/18 Time: 08:00 Rhythm: NSR [place]: Normal P-Wave: Present QRS: Normal ST-T: Normal QT: Normal Comparison: No Change
[2018-06-02 10:24] VITALS: BP 132/59
== END 2018-06-02 12:00 | disposition home or self-care (01) ==
LOC: MW.ED 21:51 → MW.MS 22:51
PROVIDERS: ADMIT Internal Medicine; ATTEND Internal Medicine
DX: R07.9 Chest pain, unspecified (principal); I10 Essential (primary) hypertension; F17.200 Nicotine dependence, unspecified, uncomplicated; K21.9 Gastro-esophageal reflux disease without esophagitis; Z79.899 Other long term (current) drug therapy
CPT/HCPCS: 36415; 71045; 80053; 83690; 84484; 85025; 85610; 93005; 99285; A9270; 99284; G0378

== ENCOUNTER 2021-07-04 13:32 | Emergency (ER) | payer SELFPAY ==
[2021-07-04 15:10] VITALS: BP 135/68; PULSE 75
== END 2021-07-04 15:06 | disposition home or self-care (01) ==
LOC: MW.ED 13:32
DX: S62.101A Fracture of unspecified carpal bone, right wrist, initial encounter for closed fracture (principal); I10 Essential (primary) hypertension; Z79.899 Other long term (current) drug therapy; Z72.0 Tobacco use; W19.XXXA Unspecified fall, initial encounter
CPT/HCPCS: 29125; 99282; 99283